=== PATIENT | male | born 1975 | race Caucasian/White ===

== ENCOUNTER → 2019-01-04 | Outpatient (CLI) | payer OTHER | END | disposition home or self-care (01) | LOC: US 15:52 | DX: R22.1 Localized swelling, mass and lump, neck (principal) ==

== ENCOUNTER → 2022-08-06 | Outpatient (CLI) | payer OTHER | END | disposition home or self-care (01) | LOC: US 13:59 | PROVIDERS: ATTEND Internal Medicine | DX: R22.1 Localized swelling, mass and lump, neck (principal) ==

== ENCOUNTER → 2022-09-23 | Day surgery (SDC) | payer OTHER ==
[~2022-09-23] VITALS: Ht 180.3 cm; Wt 145.1 kg
[~2022-09-23] MED LIST: HYDROCODONE-AC1 EAC1 PO; MELATONIN1 MG PO
[2022-09-23 08:36] VITALS: BP 145/88
[2022-09-23 10:20] VITALS: BP 132/80
[2022-09-23 10:35] VITALS: BP 110/65
[2022-09-23 10:50] VITALS: BP 119/76
[2022-09-23 11:04] VITALS: BP 124/83
[2022-09-23 11:16] VITALS: BP 121/81
== END | disposition home or self-care (01) ==
LOC: SDC 09-19 09:30
PROVIDERS: ATTEND Surgery
DX: D17.0 Benign lipomatous neoplasm of skin and subcutaneous tissue of head, face and neck (principal)